=== PATIENT | female | born 1985 | race African-American/Black ===

== ENCOUNTER 2019-06-20 15:26 | Emergency (ER) | payer OTHER ==
[2019-06-20 15:32] VITALS: TEMP 98.7; BMI 27.4
--- NOTE | 2019-06-20 17:14 | PDOC ---
History of Present Illness <Dm Richter - Last Filed: 06/21/19 05:53> - General History Source: Patient Exam Limitations: No Limitations - History of Present Illness Initial Comments: 06/20/19 17:09 Patient is a 34 year old female LMP 04/26/19 with no pmhx c/o lower abd crampy pain x 2 days. States the pain initally was mild but now getting more intense 6 /10, continuos. Has not taken any thing for the pain. States he visited [facility] in [facility] last week, had blood work and US done. She was told that the was not progressing and was an inevitable miscarriage and told to come to the ED for cramping. Reports the HCG level was 6100. Denies any vagina bleeding. PMHX: neg PSOCHX: (-) cig, drug, (+) occ etoh ALL: NKDA GENERAL/CONSTITUTIONAL: [No fever or chills. No weakness. No weight change.] HEAD, EYES, EARS, NOSE AND THROAT: [No change in vision. No ear pain or discharge. No sore throat.] CARDIOVASCULAR: [No chest pain or shortness of breath.] RESPIRATORY: [No cough, wheezing, or hemoptysis.] GASTROINTESTINAL: [No nausea, vomiting, diarrhea or constipation. No rectal bleeding.] GENITOURINARY: [No dysuria, frequency, or change in urination.] MUSCULOSKELETAL: [No joint or muscle swelling or pain. No neck or back pain.] SKIN AND BREASTS: [No rash or easy bruising.] NEUROLOGIC: [No headache, vertigo, loss of consciousness, or loss of sensation.] PSYCHIATRIC: [No depression or anxiety.] ENDOCRINE: [No increased thirst. No abnormal weight change.] HEMATOLOGIC/LYMPHATIC: [No anemia, easy bleeding, or history of blood clots.] ALLERGIC/IMMUNOLOGIC: [No hives or skin allergy. No latex allergy.] GENERAL: [The patient is awake, alert, and fully oriented, in no acute distress. ] HEAD: [Normal with no signs of trauma.] EYES: [Pupils equal, round and reactive to light, extraocular movements intact, sclera anicteric, conjunctiva clear.] ENT: [Ears normal, nares patent, oropharynx clear without exudates. Moist mucous membranes.] NECK: [Normal range of motion, supple without lymphadenopathy, JVD, or masses.] LUNGS: [Breath sounds equal, clear to auscultation bilaterally. No wheezes, and no crackles.] HEART: [Regular rate and rhythm, normal S1 and S2 without murmur, rub.] ABDOMEN: [Soft, (+) mild tenderness lower abdomen, normoactive bowel sounds. No guarding, no rebound. No masses.] EXTREMITIES: [Normal range of motion, no edema. No clubbing or cyanosis. No cords, erythema, or tenderness.] NEUROLOGICAL: [Cranial nerves II through XII grossly intact. Normal speech, normal gait.] PSYCH: [Normal mood, normal affect.] <Steve Lyons - Last Filed: 06/27/19 17:43> - General Chief Complaint: Pain Stated Complaint: 8 WEEKS/ ABD PAIN Time Seen by Provider: 06/20/19 16:40 Past History <Dm Richter - Last Filed: 06/21/19 05:53> - Past Medical History COPD: No - Reproductive History Is Patient Now?: Yes Therapeutic (s) & number: Yes (2) - Psycho Social/Smoking Cessation Hx Smoking History: Never smoked <Steve Lyons - Last Filed: 06/27/19 17:43> - Past Medical History Allergies/Adverse Reactions: Allergies Allergy/AdvReac Type Severity Reaction Status Date / Time No Known Allergies Allergy Verified 06/20/19 15:32 Home Medications: Ambulatory Orders Nitrofurantoin Monohyd/M-Cryst [Macrobid -] 100 mg PO BID #14 capsule 06/21/19 Nitrofurantoin Monohyd/M-Cryst [Macrobid -] 100 mg PO BID #14 capsule 06/21/19 *Physical Exam - Vital Signs Last Vital Signs Temp Pulse Resp BP Pulse Ox 98.7 F 85 20 104/64 99 06/20/19 15:29 06/20/19 23:12 06/20/19 23:12 06/20/19 23:12 06/20/19 23:12 <Dm Richter - Last Filed: 06/21/19 05:53> - Vital Signs Last Vital Signs Temp Pulse Resp BP Pulse Ox 98.7 F 102 H 18 110/71 99 06/20/19 15:29 06/20/19 15:29 06/20/19 15:29 06/20/19 15:29 06/20/19 15:29 <Steve Lyons - Last Filed: 06/27/19 17:43> ED Treatment Course - LABORATORY CBC & Chemistry Diagram: 06/20/19 17:20 06/20/19 19:31 - ADDITIONAL ORDERS Additional order review: Laboratory Results 06/20/19 06/20/19 06/20/19 19:31 19:31 18:47 Sodium 138 Potassium 3.4 L Chloride 107 Carbon Dioxide 22 Anion Gap 8 BUN 14.7 Creatinine 0.7 Est GFR (CKD-EPI)AfAm 131.02 Est GFR (CKD-EPI)NonAf 113.04 Random Glucose 104 Calcium 8.7 Total Bilirubin 0.4 AST 21 ALT 24 Alkaline Phosphatase 44 L Total Protein 6.9 Albumin 3.7 Beta HCG, Quant 21254.2 Urine Color Urine Appearance Urine pH Ur Specific [place] Urine Protein Urine Glucose (UA) Urine Ketones Urine Blood Urine Nitrite Urine Bilirubin Urine Urobilinogen Ur Leukocyte Esterase Urine WBC (Auto) Urine RBC (Auto) Urine Casts (Auto) U Epithel Cells (Auto) Urine Bacteria (Auto) Blood Type O POSITIVE O POSITIVE Antibody Screen Negative 06/20/19 06/20/19 06/20/19 18:47 17:20 17:20 Sodium Cancelled Potassium Cancelled Chloride Cancelled Carbon Dioxide Cancelled Anion Gap Cancelled BUN Cancelled Creatinine Cancelled Est GFR (CKD-EPI)AfAm Cancelled Est GFR (CKD-EPI)NonAf Cancelled Random Glucose Cancelled Calcium Cancelled Total Bilirubin Cancelled AST Cancelled ALT Cancelled Alkaline Phosphatase Cancelled Total Protein Cancelled Albumin Cancelled Beta HCG, Quant Cancelled Urine Color Yellow Urine Appearance Cloudy Urine pH 6.0 Ur Specific [place] 1.029 Urine Protein Trace Urine Glucose (UA) Negative Urine Ketones Negative Urine Blood Negative Urine Nitrite Negative Urine Bilirubin Negative Urine Urobilinogen 1.0 Ur Leukocyte Esterase 2+ H Urine WBC (Auto) 27 Urine RBC (Auto) 2 Urine Casts (Auto) 10 U Epithel Cells (Auto) 6.3 Urine Bacteria (Auto) 307.3 Blood Type Cancelled Antibody Screen Cancelled 06/20/19 17:20 Sodium Cancelled Potassium Cancelled Chloride Cancelled Carbon Dioxide Cancelled Anion Gap Cancelled BUN Cancelled Creatinine Cancelled Est GFR (CKD-EPI)AfAm Cancelled Est GFR (CKD-EPI)NonAf Cancelled Random Glucose Cancelled Calcium Cancelled Total Bilirubin Cancelled AST Cancelled ALT Cancelled Alkaline Phosphatase Cancelled Total Protein Cancelled Albumin Cancelled Beta HCG, Quant Cancelled Urine Color Urine Appearance Urine pH Ur Specific [place] Urine Protein Urine Glucose (UA) Urine Ketones Urine Blood Urine Nitrite Urine Bilirubin Urine Urobilinogen Ur Leukocyte Esterase Urine WBC (Auto) Urine RBC (Auto) Urine Casts (Auto) U Epithel Cells (Auto) Urine Bacteria (Auto) Blood Type Antibody Screen 06/20/19 17:20 RBC 3.72 MCV 96.4 H MCHC 34.0 RDW 12.8 MPV 7.9 Neutrophils % 49.3 Lymphocytes % 35.1 Monocytes % 12.5 H Eosinophils % 2.2 Basophils % 0.9 - Medications Given in the ED: ED Medications Discontinued Medications Generic Name Dose Route Start Last Admin Trade Name Freq PRN Reason Stop Dose Admin Acetaminophen 975 mg 06/20/19 19:02 06/20/19 19:32 Tylenol - PO 06/20/19 19:03 975 mg ONCE ONE Administration Sodium Chloride 1,000 ml 06/20/19 17:17 06/20/19 17:25 Normal Saline - IV 06/20/19 17:18 1,000 ml ONCE ONE Administration <Dm Richter - Last Filed: 06/21/19 05:53> - LABORATORY CBC & Chemistry Diagram: 06/20/19 17:20 06/20/19 19:31 <Steve Lyons - Last Filed: 06/27/19 17:43> Medical Decision Making - Medical Decision Making 06/20/19 17:09 Patient is a 34 year old female LMP 04/26/19 with no pmhx c/o lower abd crampy pain x 2 days. States the pain initally was mild but now getting more intense 6 /10, continuos. Has not taken any thing for the pain. States he visited [facility] in [facility] last week, had blood work and US done. She was told that the was not progressing and was an inevitable miscarriage and told to come to the ED for cramping. Reports the HCG level was 6100. Denies any vagina bleeding. Symptoms consistent with abdominal pain in early rule out ectopic versus miscarriage. Labs IV fluids Possible ultrasound Tylenol Reassess Patient Full Name: KING MYERS Patient Accession No: [id number] Patient : 1985 Reason for Exam: pelvic pain Referring Physician: Patient Name: LUCIA MALIK PRELIMINARY REPORT FROM [facility] EXAM: Ultrasound obstetric, less than 14 weeks and Ultrasound transvaginal ( obstetric) and Duplex scan Pelvis (includes arterial venous) DATE: 2019-06-20 20:38:45 IMAGES: 39 HISTORY: Pain, IMPRESSION: heart rate is 122. Average ultrasound age 6 weeks 0 days. No solid adnexal mass seen. Appropriate arterial and venous waveforms at both ovaries. Single intrauterine gestational sac is identified, with yolk sac and pole and cardiac activity. No abnormal fluid collections seen. [place] rump length 2 mm. Mean sac diameter 15 mm. 21 mm left ovarian complex cyst seen. THIS DOCUMENT HAS BEEN ELECTRONICALLY SIGNED Homer Mcallister MD 06/20/2019 22:45 EST M.D. Please call [facility] [phone] ([phone]) with questions. INTERPRETING RADIOLOGIST: Homer Mcallister MD Electronically Signed: Jun 20, 2019 10:46PM EST Labs reviewed noted to have 27 WBCs on urine we will send prescription for Macrobid to the pharmacy Selected Entries 06/20/19 23:12 Pulse Rate [ 85 Left] Respiratory 20 Rate Blood Pressure 104/64 [Left Arm] O2 Sat by Pulse 99 Oximetry (%) temp 98. orally I discussed the physical exam findings, ancillary test results and final diagnoses with the patient. I answered all of the patient's questions. The patient was satisfied with the care received and felt comfortable with the discharge plan and treatment plan. The Patient agrees to follow up with the primary care physician within 24-72 hours. Attempted to send prescription off but there was no pharmacy on file so patient call to get that information so prescription can be sent. 06/27/19 17:42 <Steve Lyons - Last Filed: 06/27/19 17:43> Discharge <Dm Richter - Last Filed: 06/21/19 05:53> - Discharge Information Problems reviewed: Yes <Steve Lyons - Last Filed: 06/27/19 17:43> - Discharge Information Clinical Impression/Diagnosis: Abdominal pain affecting , antepartum Condition: Stable Disposition: HOME - Additional Discharge Information Prescriptions: Nitrofurantoin Monohyd/M-Cryst [Macrobid -] 100 mg PO BID #14 capsule Nitrofurantoin Monohyd/M-Cryst [Macrobid -] 100 mg PO BID #14 capsule - Follow up/Referral Referrals: Kelsie Crenshaw MD [Staff Physician] - - Patient Discharge Instructions Patient Printed Discharge Instructions: DI for Abdominal Pain -- Early , DI for Urinary Tract Infection (UTI) Additional Instructions: Your Discharge Instructions: You must call primary care physician within 24 hours to arrange follow-up. Return to the Emergency Department with any new, persistent or worsening symptoms, for fever, chills, SOB, dizziness or any other concerning changes that may occur.
[2019-06-20] MEDS ORDERED: SODIUM CHLORIDE 0.9% 500 ML INFUS.BAG IV ONE (17:17)
[2019-06-20 17:50] LABS: BASO % 0.9 % (0-2.0); EOS % 2.2 % (0-4.5); HEMATOCRIT 35.9 % (32.4-45.2); HEMOGLOBIN 12.2 GM/dL (10.7-15.3); LYMPH % 35.1 % (8-40); MCH 32.8 pg (25.7-33.7); MEAN CELL VOLUME 96.4 fl (80-96); MEAN PLT VOLUME 7.9 fl (7.5-11.1); MONO % 12.5 % (3.8-10.2); NEUT % 49.3 % (42.8-82.8); PLATELET COUNT 244 K/MM3 (134-434); RBC 3.72 M/mm3 (3.60-5.2); RDW 12.8 % (11.6-15.6); WHITE BLOOD COUNT 8.8 K/mm3 (4.0-10.0)
[2019-06-20 17:54] LABS: EPI CELLS 6.3 /HPF (0-5/HPF); HYALINE CASTS 10 /lpf (0-8); URINE APPEARANCE CLOUDY; URINE BACTERIA 307.3 /hpf (NEGATIVE); URINE BILIRUBIN NEGATIVE (NEGATIVE); URINE COLOR YELLOW; URINE GLUCOSE (UA) NEGATIVE (NEGATIVE); URINE KETONE NEGATIVE (NEGATIVE); URINE LEUK ESTERASE 2+ (NEGATIVE); URINE NITRITE NEGATIVE (NEGATIVE); URINE PROTEIN TRACE (NEGATIVE); URINE RBC 2 /hpf (0-4); URINE WBC 27 /hpf (0-5)
[2019-06-20] MEDS ORDERED: ACETAMINOPHEN 500 MG TABLET (FP) PO ONE (19:02)
[2019-06-20] MEDS ORDERED: ACETAMINOPHEN 325 MG TABLET (FP) ONE (19:23)
[2019-06-20 20:30] LABS: ALBUMIN 3.7 g/dl (3.4-5.0); BILIRUBIN,TOTAL 0.4 mg/dL (0.2-1); BLOOD UREA NITROGEN 14.7 mg/dL (7-18); CALCIUM 8.7 mg/dL (8.5-10.1); CREATININE 0.7 mg/dL (0.55-1.3); POTASSIUM 3.4 mmol/L (3.5-5.1); TOT PROT 6.9 g/dl (6.4-8.2)
[2019-06-20 23:14] VITALS: BP 104/64; PULSE 85
== END 2019-06-20 23:13 | disposition home or self-care (01) ==
LOC: JER 15:26
DX: O26.891 Other specified pregnancy related conditions, first trimester (principal); R10.30 Lower abdominal pain, unspecified; Z3A.01 Less than 8 weeks gestation of pregnancy
CPT/HCPCS: 36415; 76817-TC; 80053; 81003; 84702; 85025; 86850; 86900; 86901; 99284-25